=== PATIENT | female | born 1950 | race Caucasian/White ===

== ENCOUNTER → 2018-08-20 | Outpatient (CLI) | payer SELFPAY ==
--- NOTE | 2018-08-20 08:44 | AVDS_ITS ---
Reason For Study: RUE Device complications RIGHT Inflow artery 147.3/76.1 cm/sec Inflow artery 691.5 cc/sec Prox anastomosis 662.7/399.6 cm/sec Prox anastomosis 913.9 cc/sec Prox graft 369.8/221.2 cm/sec Prox graft 1465 cc/sec Mid graft 82/35.9 cm/sec Mid graft 597.9 cc/sec Distal graft 49.1/33.7 cm/sec Distal .6 cc/sec. Interpretation Summary 1. Patent AVG but may have some outflow stenosis. Ordering Physician: Redd Worthy Referring Physician: Yelitza Brandon Performed By: Fatou Moreno RVT
== END | disposition home or self-care (01) ==
LOC: CVS 08:41
PROVIDERS: Referring Provider Surgery Vascular Surgery; Visit Provider Surgery Vascular Surgery
DX: N18.6 End stage renal disease (principal); T82.858A Stenosis of other vascular prosthetic devices, implants and grafts, initial encounter
CPT/HCPCS: 93990